=== PATIENT | female | born 1945 | race Caucasian/White ===

== ENCOUNTER → 2018-08-17 | Day surgery (SDC) | payer OTHER ==
--- NOTE | 2018-08-20 14:12 | OP ---
DATE OF OPERATION: 08/17/2018 PREOPERATIVE DIAGNOSIS: Bilateral suspicious masses: Left, 1 to 3 o'clock, 7 cm from the nipple; and right, 1 to 3 o'clock, 2 cm from the nipple. POSTOPERATIVE DIAGNOSIS: Bilateral suspicious masses: Left, 1 to 3 o'clock, 7 cm from the nipple; and right, 1 to 3 o'clock, 2 cm from the nipple. PROCEDURE: Bilateral ultrasound-guided core biopsies and clip placement. ANESTHESIA: Local. ATTENDING SURGEON: Kathy Hernandez MD ESTIMATED BLOOD LOSS: Minimal. COMPLICATIONS: None. PROCEDURE: Patient was made aware of the risks and benefits of the procedure and consented. She was placed in the supine position and the left side was approached first. Under sterile conditions, with 1% lidocaine for local anesthesia, a small fidel was made in the skin. Using a 13-gauge suction biopsy device via lateral approach under ultrasound guidance, multiple cores were obtained and submitted to Pathology. Likewise under ultrasound guidance, a bowtie clip was placed into the biopsy region. Well tolerated by patient. Steri-Strip and sterile bandage was applied. Next, the right side was approached. Under sterile conditions, with 1% lidocaine for local anesthesia, a small fidel was made in the skin. Using a 13-gauge suction biopsy device via medial approach under ultrasound guidance, multiple cores were submitted to Pathology. Likewise under ultrasound guidance, a bowtie clip was placed into the biopsy region. Well tolerated by patient. Steri-Strip and sterile bandage was applied. Will contact her with the results. KATHY HERNANDEZ M.D. [id number]
--- NOTE | 2018-08-20 14:52 | PATH ---
Surgical Pathology Report Patient Name: RAAD MAYERS [facility]. Rec. #: [id number] /Age/Gender: 1945 (Age: 73) / F Account: [id number] Location: [facility] Taken: 08/17/2018 Received: 08/17/2018 Reported: 08/20/2018 Physicians: Kathy Hernandez M.D. Specimen(s) Received A: LEFT BREAST CORE BIOPSY 1-3 N7 B: RIGHT BREAST CORE BIOPSY 1-3 N2 Clinical History Palpable mass Ultrasound findings: Highly suspicious/malignant Final Diagnosis A. 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 Results of ER and WY studies performed on block A at [facility] are as follows: ER (clone [id number] mouse monoclonal antibody by [employer]): 100 % nuclear staining with strong intensity (Positive). WY (clone16 mouse monoclonal antibody by [employer]):1-2 % nuclear staining with moderate to weak intensity (Low positive). B. breast, right, 1-3:00, 2 cm from nipple, core biopsy: Invasive ductal carcinoma, moderately differentiated, measuring at least 8 mm in greatest dimension In this material. Results of ER and WY studies performed on block B at [facility] are as follows: ER (clone [id number] mouse monoclonal antibody by [employer]ica): 100 % nuclear staining with strong intensity (Positive). WY (clone16 mouse monoclonal antibody by [employer]ica): ~40 % nuclear staining with moderate to strong intensity (Positive). Results of Her2 & Ki67 studies will be reported separately in an addendum. Positive and negative controls (internal if applicable) show appropriate results. Formalin fixation and cold ischemic times are within current ASCO/CAP recommendations for ER, WY and Her2 testing. Electronically Signed By Bethanie Cantrell M.D. DOCTOR DEZ Arriola Addendum Reported: 08/21/2018 Addendum Diagnosis Results of Her2 (IHC) & Ki-67 studies performed on block A (left breast) at [place], [place] ([id number]) are as follows: Her2 IHC (EP3 from [employer], formerly known as [id number], using [employer] Polymer Refine detection kit):0 (negative). Ki-67:~5% (low proliferative index). Results of Her2 (IHC) & Ki-67 studies performed on block B (right breast) at [place], [place] ([id number]) are as follows: Her2 IHC (EP3 from [employer], formerly known as [id number], using [employer] Polymer Refine detection kit):0 (negative). Ki-67:~10% (low proliferative index). Positive and negative controls (internal if applicable) show appropriate results. Bethanie Cantrell M.D. Gross Description A. Received in formalin labeled "left breast 1:00-3:00" is a 2.5 x 2.4 x 0.3 cm aggregate of multiple barnhart-yellow, irregular to cylindrical portions of fibroadipose tissue admixed with blood clot and mucinous material. The formalin is filtered and the specimen is entirely submitted in one cassette. B. Received in formalin labeled "right breast 1:00-3:00" is a 1.8 x 1.4 x 0.2 cm aggregate of multiple barnhart-yellow, irregular to cylindrical portions of fibroadipose tissue. The formalin is filtered and the specimen is entirely submitted in one cassette. Time to formalin fixation: < 1 minute Total formalin fixation time: Approximately 6 hours. 08/17/2018 [facility]08/17/2018
== END | disposition home or self-care (01) ==
LOC: FRADUS-SUR 14:24
PROVIDERS: ATTEND Surgery Surgical Oncology
PROC: 0HBV3ZX Excision of Bilateral Breast, Percutaneous Approach, Diagnostic (ICD-10-PCS; principal; 2018-08-17)
DX: C50.412 Malignant neoplasm of upper-outer quadrant of left female breast (principal); C50.211 Malignant neoplasm of upper-inner quadrant of right female breast; D05.12 Intraductal carcinoma in situ of left breast; Z17.0 Estrogen receptor positive status [ER+]; N63.22 Unspecified lump in the left breast, upper inner quadrant; N63.11 Unspecified lump in the right breast, upper outer quadrant
CPT/HCPCS: 19083; 87899; 88305-TC; 88342-TC; A4648

== ENCOUNTER 2018-10-02 06:04 | Inpatient (IN) | payer OTHER ==
[2018-09-20 14:24] VITALS: BMI 25.4
--- NOTE | 2018-09-24 14:17 | HP ---
Admitting History and Physical - Primary Care Physician PCP: Kathy Hernandez - Admission Chief Complaint: bilateral breast cancer History of Present Illness: Patient is a 73 yo female who presented with c/o right breast mass noted on self exam since l which had increased in size and showed skin changes. Patient underwent a mammo and US 06/2018 which was c/w right and left suspicious masses without evidence of adenopathy. Patient underwent core bx of the left 1- 3 o'clock mass which was c/w mucinous ca and DCIS (ER/VT pos) and right 1-3 o' clock invasive ductal ca (ER/VT pos). Patient is now to undergo bilateral mastectomy with snbx possible andx without reconstruction. History Source: Patient Limitations to Obtaining History: No Limitations - Past Medical History Cardiovascular: Yes: HTN ENT: Yes: Other (glaucoma) - Past Surgical History Past Surgical History: Yes: Breast Biopsy (bilateral (1992-benign)), Hysterectomy (JOSE/BSO (1999 sec to ovarian cyst and uterine prolapse)) - Advance Directives Advance Directives: Yes: Health Care Proxy - Smoking History Smoking history: Never smoked Have you smoked in the past 12 months: No - Alcohol/Substance Use Hx Alcohol Use: No Home Medications - Allergies Allergies/Adverse Reactions: Allergies Allergy/AdvReac Type Severity Reaction Status Date / Time aspirin Allergy Severe Rash Verified 09/20/18 14:13 - Home Medications Home Medications: Ambulatory Orders Acetaminophen [Tylenol] 650 mg PO PRN PRN 09/20/18 Amlodipine Besylate [Norvasc -] 5 mg PO DAILY 09/20/18 Lisinopril 10 mg PO DAILY 09/20/18 Family Disease History - Family Disease History Family History: Denies Review of Systems - Review of Systems Musculoskeletal: reports: Back Pain, Joint Pain Physical Examination Constitutional: Yes: Well Nourished Cardiovascular: Yes: WNL Respiratory: Yes: WNL Breast(s): Yes: Other (Right breast deformity with 6 cm mass that is fixed to the skin from 12-3 and right nipple retraction. Left 6 cm mass from 1-3 without fixation. Right oval dark nevus noted on the skin 9N6.) Problem List - Problems (1) Bilateral breast cancer Code(s): C50.911 - MALIGNANT NEOPLASM OF UNSP SITE OF RIGHT FEMALE BREAST; C50.912 - MALIGNANT NEOPLASM OF UNSPECIFIED SITE OF LEFT FEMALE BREAST Qualifiers: Estrogen receptor status: positive Patient sex: female Assessment/Plan Bilateral mastectomy with snbx, poss, andx
[2018-10-02] MEDS ORDERED: ISOSULFAN BLUE 10 MG/ML VIAL SQ ONE (07:20)
[2018-10-02] MEDS ORDERED: PROPOFOL 20 ML ONE (07:56)
[2018-10-02] MEDS ORDERED: MIDAZOLAM HCL 2 MG/2 ML SINGLE DOSE VIAL ONE (07:56)
[2018-10-02] MEDS ORDERED: ceFAZolin SODIUM 1 GM VIAL ONE (07:58)
[2018-10-02] MEDS ORDERED: SODIUM CHLORIDE 0.9% P/F 10 ML VIAL IJ ONE ×2 (07:58→07:59)
[2018-10-02] MEDS ORDERED: ROCURONIUM BROMIDE 50 MG/5 ML SYRINGE ONE (08:43)
[2018-10-02] MEDS ORDERED: DEXAMETHASONE SOD PHOSPHATE 4 MG/1 ML VIAL ONE (08:53)
[2018-10-02] MEDS ORDERED: ONDANSETRON 4 MG/2 ML VIAL ONE (08:53)
[2018-10-02] MEDS ORDERED: KETOROLAC TROMETHAMINE 30 MG/1 ML VIAL ONE (11:29)
[2018-10-02] MEDS ORDERED: GUM MASTIC/STORAX/MSAL/ALCOHOL 1 DRP DROPSBTL MC ONE (11:58)
[2018-10-02] MEDS ORDERED: ONDANSETRON 4 MG/2 ML VIAL IVPUSH PRN ×2 (12:53→12:55)
[2018-10-02] MEDS ORDERED: oxyCODONE HCL 5 MG TABLET PO PRN ×2 (12:53→12:55)
[2018-10-02] MEDS ORDERED: PROMETHAZINE HCL 25 MG/1 ML VIAL IVPUSH PRN (12:53)
[2018-10-02] MEDS ORDERED: ACETAMINOPHEN 325 MG TABLET (FP) PO PRN ×2 (12:53→12:57)
[2018-10-02] MEDS ORDERED: DEXTROSE 5%-0.45% SALINE 1,000 ML IV SCH (13:00)
[2018-10-02] MEDS ORDERED: LACTATED RINGERS SOLUTION 1,000 ML IV SCH (13:00)
[2018-10-02] MEDS: ONDANSETRON 4 MG/2 ML VIAL IVPUSH PRN ×2 (13:44→14:48)
[2018-10-02] MEDS: DEXTROSE 5%-0.45% SALINE 1,000 ML IV SCH (14:15)
[2018-10-02] MEDS: CEFAZOLIN 1 GM/D5W 1 GRAM/50 ML BAG IVPB SCH ×2 (14:48→21:25)
[2018-10-02] MEDS ORDERED: CEFAZOLIN 1 GM/D5W 50 ML IVPB SCH (15:00)
[2018-10-02] MEDS: ACETAMINOPHEN 325 MG TABLET (FP) PO PRN (21:25)
[2018-10-03] MEDS: CEFAZOLIN 1 GM/D5W 1 GRAM/50 ML BAG IVPB SCH ×4 (01:59→21:03)
[2018-10-03 07:30] LABS: HEMATOCRIT 29.4 % (32.4-45.2); HEMOGLOBIN 9.9 GM/dl (10.7-15.3); MCH 31.4 pg (25.7-33.7); MCHC 33.5 g/dl (32.0-36.0); MEAN CELL VOLUME 93.6 fl (80-96); MEAN PLT VOLUME 9.6 fl (7.5-11.1); PLATELET COUNT 189 K/MM3 (134-434); RBC 3.15 M/mm3 (3.60-5.2); RDW 12.3 % (11.6-15.6); WHITE BLOOD COUNT 10.9 K/mm3 (4.0-10.8)
--- NOTE | 2018-10-03 09:00 | PN ---
Progress Note, Physician Chief Complaint: Bilateral breast cancer S/P right modified radical mastectomy and left total mastectomy sentenel node bilaterally no reconstrcution POD #1 History of Present Illness: patient eating up in bed, pain managed with oxycodone prn, will need VNS on discharge - Current Medication List Current Medications: Active Medications Acetaminophen (Tylenol -) 650 mg PO Q4H PRN PRN Reason: FEVER Last Admin: 10/02/18 21:25 Dose: 650 mg Amlodipine Besylate (Norvasc -) 5 mg PO DAILY [facility] Heparin Sodium (Porcine) (Heparin -) 5,000 unit SQ BID [facility] Lactated Ringer's (Lactated Ringers Solution) 1,000 mls @ 125 mls/hr IV ASDIR [facility] Cefazolin Sodium (Ancef 1 Gm Premixed Ivpb -) 1 gram in 50 mls @ 100 mls/hr IVPB Q6H-IV [facility] Stop: 10/09/18 14:59 Last Admin: 10/03/18 08:53 Dose: 100 mls/hr Dextrose/Sodium Chloride (D5-1/2ns -) 1,000 mls @ 100 mls/hr IV ASDIR [facility] Last Admin: 10/02/18 14:15 Dose: 100 mls/hr Lisinopril (Prinivil) 10 mg PO DAILY [facility] Ondansetron HCl (Zofran Injection) 4 mg IVPUSH Q6H PRN PRN Reason: NAUSEA AND/OR VOMITING Last Admin: 10/02/18 14:48 Dose: 4 mg Oxycodone HCl (Roxicodone -) 5 mg PO Q4H PRN PRN Reason: PAIN LEVEL 4 - 6 Promethazine HCl (Phenergan Injection -) 12.5 mg IVPUSH Q6H PRN PRN Reason: NAUSEA-FOR RESCUE AFTER 15 MIN - Objective Vital Signs: Vital Signs Temperature 98.2 F 10/03/18 06:00 Pulse Rate 66 10/03/18 06:00 Respiratory Rate 18 10/03/18 07:40 Blood Pressure 141/53 L 10/03/18 06:00 O2 Sat by Pulse Oximetry (%) 99 10/03/18 07:40 Constitutional: Yes: No Distress Breast(s): Yes: Other (Bilateral incisions intact steristrips in place bloody dressings changed, some echymosis on medial aspect of arms, minimal on chest wall ,no expanding hematoma,JORDAN drains emptied, dressings changed) Labs: CBC, BMP 10/03/18 06:45 Problem List - Problems (1) Bilateral breast cancer Code(s): C50.911 - MALIGNANT NEOPLASM OF UNSP SITE OF RIGHT FEMALE BREAST; C50.912 - MALIGNANT NEOPLASM OF UNSPECIFIED SITE OF LEFT FEMALE BREAST Qualifiers: Breast location: unspecified site of breast Estrogen receptor status: positive Patient sex: female Qualified Code(s): C50.911 - Malignant neoplasm of unspecified site of right female breast; C50.912 - Malignant neoplasm of unspecified site of left female breast; Z17.0 - Estrogen receptor positive status [ER+] Assessment/Plan oxycodone , tylenol prn Iv antibiotics spirometry SCDs while in bed monitor JORDAN output wear binder [employer] 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
[2018-10-03] MEDS: HEPARIN NA (PORCINE) 5,000 UNITS/ML 1ML VIAL SQ SCH ×2 (09:33→21:24)
[2018-10-03] MEDS: ACETAMINOPHEN 325 MG TABLET (FP) PO PRN ×2 (09:33→21:24)
[2018-10-03] MEDS: amLODIPine BESYLATE 5 MG TABLET (FP) PO SCH (09:35)
[2018-10-03] MEDS: LISINOPRIL 10 MG TABLET (FP) PO SCH (09:35)
[2018-10-03] MEDS: DEXTROSE 5%-0.45% SALINE 1,000 ML IV SCH (13:00)
--- NOTE | 2018-10-03 17:43 | PN ---
Progress Note, Physician Chief Complaint: s/p bilateral mastectomy under general anesthesia History of Present Illness: post op day one - Current Medication List Current Medications: Active Medications Acetaminophen (Tylenol -) 650 mg PO Q4H PRN PRN Reason: FEVER Last Admin: 10/03/18 09:33 Dose: 650 mg Amlodipine Besylate (Norvasc -) [address] [facility] Last Admin: 10/03/18 09:35 Dose: 5 mg Heparin Sodium (Porcine) (Heparin -) 5,[address] [facility] Last Admin: 10/03/18 09:33 Dose: 5,000 unit Lactated Ringer's (Lactated Ringers Solution) 1,000 mls @ 125 mls/hr IV ASDIR [facility] Cefazolin Sodium (Ancef 1 Gm Premixed Ivpb -) 1 gram in 50 mls @ 100 mls/hr IVPB Q6H-IV [facility] Stop: 10/09/18 14:59 Last Admin: 10/03/18 08:53 Dose: 100 mls/hr Dextrose/Sodium Chloride (D5-1/2ns -) 1,000 mls @ 100 mls/hr IV ASDIR [facility] Last Admin: 10/02/18 14:15 Dose: 100 mls/hr Lisinopril (Prinivil) [address] [facility] Last Admin: 10/03/18 09:35 Dose: 10 mg Ondansetron HCl (Zofran Injection) 4 mg IVPUSH Q6H PRN PRN Reason: NAUSEA AND/OR VOMITING Last Admin: 10/02/18 14:48 Dose: 4 mg Oxycodone HCl (Roxicodone -) 5 mg PO Q4H PRN PRN Reason: PAIN LEVEL 4 - 6 Last Admin: 10/03/18 09:34 Dose: 5 mg Promethazine HCl (Phenergan Injection -) 12.5 mg IVPUSH Q6H PRN PRN Reason: NAUSEA-FOR RESCUE AFTER 15 MIN - Objective Vital Signs: Vital Signs Temperature 98.7 F 10/03/18 14:07 Pulse Rate 61 10/03/18 14:07 Respiratory Rate 16 10/03/18 14:07 Blood Pressure 117/54 L 10/03/18 14:07 O2 Sat by Pulse Oximetry (%) 97 10/03/18 14:07 Constitutional: Yes: Well Nourished Cardiovascular: Yes: WNL Respiratory: Yes: WNL Gastrointestinal: Yes: WNL Labs: CBC, BMP 10/03/18 06:45 Assessment/Plan No adverse anesthetic complications, dept of anesthesiology will sign off care at this time
[2018-10-04] MEDS: CEFAZOLIN 1 GM/D5W 1 GRAM/50 ML BAG IVPB SCH ×2 (02:27→08:27)
[2018-10-04] MEDS: ACETAMINOPHEN 325 MG TABLET (FP) PO PRN (03:13)
[2018-10-04 08:47] VITALS: BP 137/55; PULSE 76; TEMP 99
--- NOTE | 2018-10-04 09:35 | PN ---
Progress Note, Physician Chief Complaint: Right modified radical mastectomy and left total mastectomy Sentenel node biopsy no reconstruction POD#2 History of Present Illness: patient is eating no nausea or vomiting,OOB to bathroom, drain output has decreased from yesterday, VNS in place - Current Medication List Current Medications: Active Medications Acetaminophen (Tylenol -) 650 mg PO Q4H PRN PRN Reason: FEVER Last Admin: 10/04/18 03:13 Dose: 650 mg Amlodipine Besylate (Norvasc -) 5 mg PO DAILY [facility] Last Admin: 10/03/18 09:35 Dose: 5 mg Heparin Sodium (Porcine) (Heparin -) 5,000 unit SQ BID [facility] Last Admin: 10/03/18 21:24 Dose: 5,000 unit Lactated Ringer's (Lactated Ringers Solution) 1,000 mls @ 125 mls/hr IV ASDIR [facility] Cefazolin Sodium (Ancef 1 Gm Premixed Ivpb -) 1 gram in 50 mls @ 100 mls/hr IVPB Q6H-IV [facility] Stop: 10/09/18 14:59 Last Admin: 10/04/18 08:27 Dose: 100 mls/hr Dextrose/Sodium Chloride (D5-1/2ns -) 1,000 mls @ 100 mls/hr IV ASDIR [facility] Last Admin: 10/03/18 13:00 Dose: 100 mls/hr Lisinopril (Prinivil) 10 mg PO DAILY [facility] Last Admin: 10/03/18 09:35 Dose: 10 mg Ondansetron HCl (Zofran Injection) 4 mg IVPUSH Q6H PRN PRN Reason: NAUSEA AND/OR VOMITING Last Admin: 10/02/18 14:48 Dose: 4 mg Oxycodone HCl (Roxicodone -) 5 mg PO Q4H PRN PRN Reason: PAIN LEVEL 4 - 6 Last Admin: 10/03/18 09:34 Dose: 5 mg Promethazine HCl (Phenergan Injection -) 12.5 mg IVPUSH Q6H PRN PRN Reason: NAUSEA-FOR RESCUE AFTER 15 MIN - Objective Vital Signs: Vital Signs Temperature 99 F 10/04/18 08:46 Pulse Rate 76 10/04/18 08:46 Respiratory Rate 19 10/04/18 08:46 Blood Pressure 137/55 L 10/04/18 08:46 O2 Sat by Pulse Oximetry (%) 96 10/04/18 08:46 Constitutional: Yes: No Distress Breast(s): Yes: Other (Bilateral incisions intact steristrips in place, JORDAN drains functioning right 80cc and left 50 cc in 10 hour period, dressing changed ) Labs: CBC, BMP 10/03/18 06:45 Problem List - Problems (1) Bilateral breast cancer Code(s): C50.911 - MALIGNANT NEOPLASM OF UNSP SITE OF RIGHT FEMALE BREAST; C50.912 - MALIGNANT NEOPLASM OF UNSPECIFIED SITE OF LEFT FEMALE BREAST Qualifiers: Breast location: unspecified site of breast Estrogen receptor status: positive Patient sex: female Qualified Code(s): C50.911 - Malignant neoplasm of unspecified site of right female breast; C50.912 - Malignant neoplasm of unspecified site of left female breast; Z17.0 - Estrogen receptor positive status [ER+] Assessment/Plan Discharge home today with VNS cefadroxil bid and tylenol prn wear bra no shower JORDAN training
[2018-10-04] MEDS: HEPARIN NA (PORCINE) 5,000 UNITS/ML 1ML VIAL SQ SCH (10:30)
[2018-10-04] MEDS: LISINOPRIL 10 MG TABLET (FP) PO SCH (10:30)
[2018-10-04] MEDS: amLODIPine BESYLATE 5 MG TABLET (FP) PO SCH (10:30)
--- NOTE | 2018-10-04 18:46 | OP ---
DATE OF OPERATION: 10/02/2018 PREOPERATIVE DIAGNOSIS: Bilateral breast cancer. POSTOPERATIVE DIAGNOSIS: Bilateral breast cancer. PROCEDURE: Right modified radical mastectomy, left total mastectomy, and bilateral sentinel lymph node biopsies. ANESTHESIA: General intubated. ATTENDING SURGEON: Gina Hernandez MD SMART ENERGY SPECIALIST: CHRISTINE Hardin ESTIMATED BLOOD LOSS: Minimal. COMPLICATIONS: None. DESCRIPTION OF PROCEDURE: Patient was made aware of the risks and benefits of the procedure and consented. She was placed in the supine position on the operating room table and after general anesthesia was induced, the patient was intubated. Then 2.5 mL of 1% isosulfan blue was infiltrated into the right breast. The operative site was then prepped and draped in the usual sterile fashion. Waiting approximately 10 minutes with gentle manual compression, a curvilinear incision was made in the right axilla. Using blunt and sharp dissection, tissues were resected down to the axillary fat where a cluster of blue lymph nodes were identified and surgically excised and submitted for frozen section. They were reported as having metastatic carcinoma. A vertically-oriented elliptical incision was made around the breast mass and nipple using electrocautery. Skin flaps were made superior to the clavicle, medial to the sternum, laterally to the latissimus dorsi, and inferior to the inframammary fold. Using electrocautery, the breast tissue was taken off of the pectoralis muscle, extending laterally to the latissimus dorsi and clavipectoral fascia. This was incised revealing the axillary vein. Using blunt and sharp dissection, the long thoracic nerve was identified and retracted medially and laterally. The thoracodorsal trunk was identified and retracted laterally. Tissues between the 2 were bluntly and sharply dissected free. The specimen was then submitted with a short suture superior, long suture lateral, labeled as right breast with axillary contents. The wound was copiously irrigated with normal saline and hemostasis was maintained by electrocautery. Through 2 inferior stab wounds, drains were then placed and sutured to the skin with 2-0 silk. The skin was then closed with deep 2-0 Vicryl followed by interrupted 3-0 Vicryl followed by running subcuticular 4-0 Monocryl. The left side was then approached using different instruments and changing gowns and gloves. Then 2.5 mL of 1% isosulfan blue was locally infiltrated into the peritumoral tissues, again waiting approximately 10 minutes with gentle manual compression. A curvilinear incision was then made in the left axilla. Using blunt and sharp dissection, tissues were dissected down, which revealed a cluster of blue lymph nodes. These were surgically excised and submitted to pathology. Frozen section reported as no evidence of metastasis. A horizontally oriented elliptical incision was made around the nipple using electrocautery. Skin flaps were made superior to the clavicle, medial to the sternum, lateral to the latissimus dorsi, and inferior to the inframammary fold. Using electrocautery the breast tissue was taken off the pectoralis muscle, extending laterally to the latissimus dorsi. This breast was then submitted with a short suture superior, long suture lateral. The wound was copiously irrigated with normal saline and hemostasis was maintained by electrocautery. A single drain was then placed through the inferior stab wound and sutured to the skin with 2-0 silk. The lateral edge of the incision was then found to be full of redundant tissue and therefore a Y-plasty was then performed suturing the lateral portion of the skin approximately 4 cm medial to the incision, which was then closed with a 2-0 silk. The 2 dog ears were then sharply excised and all of the skin incisions were closed with interrupted 2-0 Vicryl followed by interrupted 3-0 Vicryl followed by running subcuticular 4-0 Monocryl. Steri-Strips, sterile dressings, and compression bra were then applied and the patient, having tolerated the procedure well, was transferred to the recovery room in excellent condition. GINA HERNANDEZ M.D. [id number]
--- NOTE | 2018-10-08 16:22 | PATH ---
Surgical Pathology Report Patient Name: RAAD MAYERS [facility]. Rec. #: [id number] /Age/Gender: 1945 (Age: 73) / F Account: [id number] Location: [facility] MED-SURG Taken: 10/02/2018 Received: 10/02/2018 Reported: 10/08/2018 Physicians: Kathy Hernandez M.D. Specimen(s) Received A: RIGHT AXILLARY SENTINEL NODE (FS) B: LEFT AXILLARY SENTINEL NODE (FS) C: RIGHT BREAST D: LEFT BREAST Clinical History Bilateral breast cancer Intraoperative Consult Diagnosis A. Right axillary sentinel node, frozen section: One lymph node, positive for metastatic carcinoma (1/1). B. Left axillary sentinel node, frozen section: Four negative lymph nodes (0/4). Flako Campos Final Diagnosis A. AXILLARY SENTINEL NODE, RIGHT, BIOPSY (FS): ONE LYMPH NODE WITH METASTATIC CARCINOMA (1/1, MACROMETASTASIS >2MM). TUMOR DEPOSIT MEASURES 1.2 CM IN GREATEST MICROSCOPIC DIMENSION. EXTRANODAL EXTENSION IDENTIFIED. B. AXILLARY SENTINEL NODE, LEFT, BIOPSY (FS): FOUR LYMPH NODES NEGATIVE FOR CARCINOMA (0/4). C. BREAST AND AXILLARY CONTENTS, RIGHT, RADICAL MASTECTOMY AND AXILLARY DISSECTION TWO FOCI OF INVASIVE DUCTAL CARCINOMA, MODERATELY DIFFERENTIATED (TUBULE SCORE: 3/3, NUCLEAR GRADE: 2/3, MITOTIC SCORE: 1/3; TOTAL JAMI SCORE: 6/9), WITH MICROPAPILLARY FEATURES AND ASSOCIATED MICROCALCIFICATIONS. INVASIVE CARCINOMA MEASURES 4 CM AND 1.3 CM IN GREATEST DIMENSION (GROSS MEASUREMENT), PRESENT AT UPPER INNER QUADRANT (UIQ) AND LOWER OUTER QUADRANT (LOQ), RESPECTIVELY. INVASIVE CARCINOMA (UIQ MASS) INVADES DERMIS. FOCAL DUCTAL CARCINOMA IN SITU (DCIS), SOLID TYPE, INTERMEDIATE NUCLEAR GRADE, WITH FOCAL NECROSIS. LYMPHOVASCULAR INVASION IDENTIFIED. SURGICAL MARGINS ARE UNINVOLVED BY INVASIVE CARCINOMA AND DCIS; WIDELY FREE. TWO OF TWELVE LYMPH NODES (2/12) WITH METASTATIC CARCINOMA (MACROMETASTASIS, >2MM). LARGEST TUMOR DEPOSIT MEASURES 0.3 CM IN GREATEST MICROSCOPIC DIMENSION. NO EXTRANODAL EXTENSION IDENTIFIED. SKIN WITH PIGMENTED SEBORRHEIC KERATOSIS AND UNINVOLVED BY CARCINOMA. NIPPLE IS UNINVOLVED BY CARCINOMA. PRIOR BIOPSY SITE CHANGES ARE PRESENT. REMAINDER OF BREAST PARENCHYMA SHOWS STROMAL FIBROSIS, COLUMNAR CELL CHANGES, MICROCYSTS, APOCRINE METAPLASIA, AND ASSOCIATED MICROCALCIFICATIONS. MICROCALCIFICATIONS WITHIN BLOOD VESSEL TELLEZ ARE NOTED. PATHOLOGIC STAGE (pTNM): pT2 (m) pN1a. SEE INVASIVE CARCINOMA CASE SUMMARY BELOW. D. BREAST, LEFT, TOTAL MASTECTOMY: INVASIVE DUCTAL CARCINOMA, MODERATELY DIFFERENTIATED (TUBULE SCORE: 3/3, NUCLEAR GRADE: 2/3, MITOTIC SCORE: 1/3; TOTAL JAMI SCORE: 6/9) WITH MUCINOUS AND MICROPAPILLARY FEATURES AND ASSOCIATED MICROCALCIFICATIONS. INVASIVE CARCINOMA MEASURES 3.7 CM IN GREATEST DIMENSION (GROSS MEASUREMENT), PRESENT AT UPPER OUTER QUADRANT (UOQ). EXTENSIVE DUCTAL CARCINOMA IN SITU (DCIS), SOLID, CRIBRIFORM, AND PAPILLARY TYPES, INTERMEDIATE NUCLEAR GRADE, WITH FOCAL NECROSIS AND ASSOCIATED MICROCALCIFICATIONS. NO LYMPHOVASCULAR INVASION IDENTIFIED. SURGICAL MARGINS ARE UNINVOLVED BY INVASIVE CARCINOMA AND DCIS; WIDELY FREE. TWO LYMPH NODES NEGATIVE FOR CARCINOMA (0/2). SKIN WITH SEBORRHEIC KERATOSIS AND UNINVOLVED BY CARCINOMA. NIPPLE IS UNINVOLVED BY CARCINOMA. PRIOR BIOPSY SITE CHANGES PRESENT. REMAINDER OF BREAST PARENCHYMA SHOWS FIBROADENOMA IN A BACKGROUND OF COLUMNAR CELL CHANGES, STROMAL FIBROSIS, MICROCYSTS, APOCRINE METAPLASIA, USUAL DUCTAL HYPERPLASIA, AND ASSOCIATED MICROCALCIFICATIONS. MICROCALCIFICATIONS WITHIN BLOOD VESSEL TELLEZ NOTED. PATHOLOGIC STAGE (pTNM): pT2 pN0(sn). SEE INVASIVE CARCINOMA CASE SUMMARY BELOW. Comments C. Breast Invasive Carcinoma: Surgical Pathology Case Summary (RIGHT) (Based on AJCC TNM 8 th edition) Procedure _X_ Other (specify): Radical mastectomy Specimen Laterality _X_ Right Tumor Size _X_ Greatest dimension of largest invasive focus >1 mm (millimeters): 40 mm Histologic Type _X_ Invasive carcinoma with micropapillary features Histologic Grade (Jami Histologic Score) Glandular (Acinar)/Tubular Differentiation _X_ Score 3 (<10% of tumor area forming glandular/tubular structures) Nuclear Pleomorphism _X_ Score 2 Mitotic Rate _X_ Score 1 Overall Grade _X_ Grade 2 (scores of 6) Tumor Focality _X_ Multiple foci of invasive carcinoma Number of foci: 2 Sizes of individual foci: 4 cm (UIQ) and 1.3 cm (LOQ) Ductal Carcinoma In Situ (DCIS) _X_ DCIS is present in specimen _X_ Negative for extensive intraductal component (EIC) Skin _X_ Invasive carcinoma directly invades into the dermis or epidermis without skin ulceration Margins Invasive Carcinoma Margins _X__ Uninvolved by invasive carcinoma Distance from closest margin widely free Closest margin: _X__ Cannot be determined DCIS Margins _X__ Uninvolved by DCIS Distance from closest margin (millimeters): widely free Closest margin: _X__ Cannot be determined Regional Lymph Nodes Number of Lymph Nodes Examined: 13 Number of [place] Nodes Examined: 1 _X__ Involved by tumor cells Number of Lymph Nodes with Macrometastases (>2 mm): 3 Number of Lymph Nodes with Micrometastases (>0.2 mm to 2 mm and/or >200 cells): 0 Number of Lymph Nodes with Isolated Tumor Cells (=0.2 mm and =200 cells): 0 Size of Largest Metastatic Deposit (millimeters): 12 mm Extranodal Extension: _X_ Present Treatment Effect _X_ No known presurgical therapy Lymphovascular Invasion _X_ Present Pathologic Stage Classification (pTNM, AJCC 8th Edition) Primary Tumor (Invasive Carcinoma) (pT) _X__ pT2: Tumor >20 mm but =50 mm in greatest dimension Regional Lymph Nodes (pN) Category (pN) _X_ pN1a: Metastases in 1 to 3 axillary lymph nodes, at least 1 metastasis larger than 2.0 mm Biomarker Studies Results of ER and VA studies performed on prior biopsy ([id number]) at [facility] are as follows: ER (clone [id number] mouse monoclonal antibody by [employer]): 100% nuclear staining with strong intensity (Positive). VA (clone16 mouse monoclonal antibody by [employer]):~40% nuclear staining with moderate to strong intensity (Positive). Results of Her2 (IHC) & Ki-67 studies performed on prior biopsy ([id number]) at [place], [place] ([id number]) are as follows: Her2 IHC (EP3 from [employer], formerly known as [id number], using [employer] Polymer Refine detection kit): 0 (Negative). Ki67: ~10% (Low proliferative index). D. Breast Invasive Carcinoma: Surgical Pathology Case Summary (LEFT) (Based on AJCC TNM 8 th edition) Procedure _X_ Total mastectomy (including nipple-sparing and skin-sparing mastectomy) Specimen Laterality _X__ Left Tumor Size _X_ Greatest dimension of largest invasive focus >1 mm (millimeters): 37 mm Histologic Type _X_ Invasive carcinoma with mucinous and micropapillary features Histologic Grade (Jami Histologic Score) Glandular (Acinar)/Tubular Differentiation _X_ Score 3 (<10% of tumor area forming glandular/tubular structures) Nuclear Pleomorphism _X_ Score 2 Mitotic Rate _X_ Score 1 Overall Grade _X_ Grade 2 (scores of 6) Tumor Focality _X_ Single focus of invasive carcinoma: UOQ. Ductal Carcinoma In Situ (DCIS) _X_ DCIS is present in specimen _X_ Positive for extensive intraductal component ( EIC) Margins Invasive Carcinoma Margins _X_ Uninvolved by invasive carcinoma Distance from closest margin (millimeters): widely free Closest margin: __X_ Cannot be determined DCIS Margins _X__ Uninvolved by DCIS Distance from closest margin (millimeters): widely free Closest margin: __X_ Cannot be determined: Regional Lymph Nodes _X__ Uninvolved by tumor cells Number of Lymph Nodes Examined: 6 Number of [place] Nodes Examined: 4 Number of Lymph Nodes with Macrometastases (>2 mm): 0 Number of Lymph Nodes with Micrometastases (>0.2 mm to 2 mm and/or >200 cells): 0 Number of Lymph Nodes with Isolated Tumor Cells (=0.2 mm and =200 cells): 0 Treatment Effect _X__ No known presurgical therapy Lymphovascular Invasion _X_ Not identified Pathologic Stage Classification (pTNM, AJCC 8th Edition) Primary Tumor (Invasive Carcinoma) (pT) _X_ pT2: Tumor >20 mm but =50 mm in greatest dimension Category (pN) _X_ pN0: No regional lymph node metastasis identified or ITCs only Biomarker Studies Results of ER and VA studies performed on prior biopsy ([id number]) at [facility] are as follows: ER (clone [id number] mouse monoclonal antibody by [employer]): 100% nuclear staining with strong intensity (Positive). VA (clone16 mouse monoclonal antibody by [employer]): ~1-2% nuclear staining with weak to moderate intensity (Low Positive). Results of Her2 (IHC) & Ki-67 studies performed on on prior biopsy ([id number]) at [place], [place] ([id number]) are as follows: Her2 IHC (EP3 from [employer], formerly known as [id number], using [employer] Polymer Refine detection kit): 0 (Negative). Ki67: ~5% (Low proliferative index). Comment: Her2 and Ki-67 (Part D) will be repeated in the resection specimen in view of the additional areas of invasive ductal carcinoma identified. Findings will be reported separately. Electronically Signed Kari Hdz M.D. Amendments Amended: 10/08/2018 Previous Signout Date: 10/08/2018 Comment: Update margin status Gross Description A. Received fresh for frozen section evaluation, labeled "right axillary sentinel node" is a 2.2 x 0.8 x 0.4 cm lymph node with attached adipose tissue. The lymph node is bisected and frozen section is performed on the lymph node. The frozen section residue is entirely submitted in one cassette labeled FSA. B. Received fresh for frozen section evaluation, labeled "left axillary sentinel node" are four lymph nodes with attached adipose tissue, ranging from 0.6 - 2.2 cm in greatest dimension. The largest lymph node is bisected and frozen section is performed on the lymph nodes. The frozen section residue is entirely submitted in three cassettes as follows: FSB1 & FSB2: larger bisected lymph node; FSB3: three whole lymph nodes. /10/02/2018 C. Received in formalin, labeled "right breast and axillary contents," is an 809 gram, 18.0 x 17.0 x 5.0 cm. right mastectomy specimen with a short suture marking the superior aspect and a long suture marking the lateral aspect of the specimen, per the surgeon. There is a 9.0 x 7.5 x 1.5 cm area of axillary fat attached to the specimen. The anterior surface displays a 17.0 x 11.0 cm barnhart, elliptical portion of skin with a 1.3 cm in diameter nipple. There is a 2.5 x 1.8 cm firm, bulging subepidermal mass with adjacent umbilication at 2.7 cm superior/medial to the nipple. Additionally, there is a 0.5 x 0.3 cm brown pigmented lesion at 8.5 cm the lateral to the nipple. The deep margin is inked black and the anterior soft tissue margin is inked blue. The specimen is serially sectioned from lateral to medial. Sectioning reveals a 4.0 x 3.5 x 2.8 cm barnhart, indurated mass in the upper inner quadrant (UIQ). The mass is contiguous with the bulging subepidermal mass. The mass is 1.8 cm from the deep margin. Additionally, there is a 1.3 x 1.3 x 0.8 cm barnhart, indurated mass in the lower outer quadrant (LOQ), 7 cm lateral to the first mass. The LOQ mass is 2.8 cm from the deep margin. The remaining breast parenchyma displays multifocal dense white fibrous tissue. Sectioning of the axillary fat reveals multiple lymph nodes. [employer] sections are submitted in 27 cassettes as follows: 1-serially sectioned nipple; 2-retroareolar shave; 3-lateral pigmented skin lesion; 4-6-one full face trisected section of UIQ mass, each with skin; 1-7-gvqvkbeytn full face trisected section of UIQ mass, each with skin; 10-11-lower inner quadrant; 12-13-upper outer quadrant; 14-15-one full face section each of LOQ mass; 16-uninvolved LOQ tissue; 17-deep margin; 18-anterior soft tissue margin; 19-20-one bisected lymph node; 21-22-one bisected lymph node each; 23-27-two whole possible lymph nodes each. Time to formalin fixation: 8 minutes Total formalin fixation time: Approximately 32 hours. D. Received in formalin, labeled "left breast," is a 905 gram, 23.0 x 21.0 x 5.5 cm. left mastectomy specimen with a short suture marking the superior aspect and a long suture marking the lateral aspect of the specimen, per the surgeon. The anterior surface displays an 18.0 x 12.0 cm barnhart, elliptical portion of skin with a 1.3 cm in diameter nipple. There is a 1.7 x 1.0 cm brown pigmented lesion 5.5 cm medial to the nipple. The deep margin is inked black and the anterior soft tissue margin is inked blue. The specimen is serially sectioned from medial to lateral. Sectioning reveals a 3.7 x 3.0 x 1.6 cm barnhart, indurated, focally mucinous and focally hemorrhagic appearing mass in the upper outer quadrant (UOQ). The mass is 3.0 cm from the deep margin. The remaining breast parenchyma displays multifocal dense, white, focally firm fibrous tissue. There are 2 palpable lymph nodes identified at the lateral aspect of the specimen. [employer] sections are submitted in 22 cassettes as follows: 1-serially sectioned nipple; 2-retroareolar shave; 3-medial pigmented skin lesion; 4-5-one full face bisected section of UOQ mass; 1-3-zxcqkxunab full face bisected section of UOQ mass; 3-59-xpilgfdsmg sales representative publications UOQ mass; 11-12-lower outer quadrant; 13-14-upper inner quadrant; 15-16-lower inner quadrant; 17-anterior soft tissue margin; 18-skin; 19-deep margin; 20-21-one bisected lymph node; 22-one whole lymph node. Time to formalin fixation: 11 minutes Total formalin fixation time: Approximately 30 hours. DL/10/03/2018 ebram10/02/2018
== END 2018-10-04 13:25 | disposition home or self-care (01) | DRG 581 ==
LOC: FM/S 06:04
PROVIDERS: ADMIT Surgery Surgical Oncology; ATTEND Surgery Surgical Oncology
PROC: 0HTV0ZZ Resection of Bilateral Breast, Open Approach (ICD-10-PCS; principal; 2018-10-02 09:05)
PROC: 07B60ZX Excision of Left Axillary Lymphatic, Open Approach, Diagnostic (ICD-10-PCS; 2018-10-02 09:05)
PROC: 07B50ZX Excision of Right Axillary Lymphatic, Open Approach, Diagnostic (ICD-10-PCS; 2018-10-02 09:05)
DX: C50.912 Malignant neoplasm of unspecified site of left female breast (principal); C50.911 Malignant neoplasm of unspecified site of right female breast; I10 Essential (primary) hypertension; H40.9 Unspecified glaucoma; Z17.0 Estrogen receptor positive status [ER+]
CPT/HCPCS: 36415; 85027; 88307-TC; 88309-TC; 88331-TC; 88332; 94760; J1644

== ENCOUNTER 2019-01-25 07:09 | Day surgery (SDC) | payer OTHER ==
[2019-01-25] MEDS ORDERED: DENOSUMAB 60 MG/ML DISP.SYRIN SQ ONE (10:00)
[2019-01-25 11:43] LABS: BASO % 0.6 % (0-2.0); EOS % 1.1 % (0-4.5); MCH 30.9 pg (25.7-33.7); MCHC 33.2 g/dl (32.0-36.0); MEAN PLT VOLUME 9.6 fl (7.5-11.1); MONO % 6.1 % (3.8-10.2); NEUT % 68.2 % (42.8-82.8); PLATELET COUNT 228 K/MM3 (134-434); RDW 12.8 % (11.6-15.6); WHITE BLOOD COUNT 6.7 K/mm3 (4.0-10.0)
[2019-01-25 12:08] LABS: ALBUMIN 3.8 g/dl (3.4-5.0); BILIRUBIN,TOTAL 0.5 mg/dL (0.2-1); BLOOD UREA NITROGEN 14.9 mg/dL (7-18); CALCIUM 9.2 mg/dL (8.5-10.1); CREATININE 0.6 mg/dL (0.55-1.3); POTASSIUM 4.7 mmol/L (3.5-5.1); TOT PROT 7.3 g/dl (6.4-8.2)
[2019-01-25] MEDS ORDERED: traMADol HCL 50 MG TABLET PO ONE (12:32)
[2019-01-25 13:28] VITALS: BP 151/63; PULSE 63; TEMP 99
== END 2019-01-25 13:30 | disposition home or self-care (01) ==
LOC: JONCCHEMO 07:09 → J7W 12:54 → JONCCHEMO 13:30
PROVIDERS: ATTEND Internal Medicine Hematology & Oncology
PROC: 3E013GC Introduction of Other Therapeutic Substance into Subcutaneous Tissue, Percutaneous Approach (ICD-10-PCS; principal; 2019-01-25)
DX: Z51.11 Encounter for antineoplastic chemotherapy (principal); C50.911 Malignant neoplasm of unspecified site of right female breast; C50.912 Malignant neoplasm of unspecified site of left female breast; I10 Essential (primary) hypertension; M19.91 Primary osteoarthritis, unspecified site; M41.9 Scoliosis, unspecified
CPT/HCPCS: 36415; 80053; 82306; 85025; 96372; J0897

== ENCOUNTER 2019-08-16 13:43 | Day surgery (SDC) | payer OTHER ==
[2019-08-16 13:57] LABS: BASO % 1.1 % (0-2.0); EOS % 7.2 % (0-4.5); HEMATOCRIT 38.8 % (32.4-45.2); HEMOGLOBIN 13.1 GM/dL (10.7-15.3); LYMPH % 23.9 % (8-40); MCH 31.4 pg (25.7-33.7); MCHC 33.6 g/dl (32.0-36.0); MEAN CELL VOLUME 93.3 fl (80-96); MEAN PLT VOLUME 10.2 fl (7.5-11.1); MONO % 9.4 % (3.8-10.2); NEUT % 58.4 % (42.8-82.8); PLATELET COUNT 210 K/MM3 (134-434); RBC 4.16 M/mm3 (3.60-5.2); RDW 13.6 % (11.6-15.6); WHITE BLOOD COUNT 6.4 K/mm3 (4.0-10.0)
[2019-08-16] MEDS ORDERED: DENOSUMAB 60 MG/ML DISP.SYRIN SQ ONE (14:00)
[2019-08-16 14:23] LABS: BILIRUBIN,TOTAL 0.4 mg/dL (0.2-1); BLOOD UREA NITROGEN 13.6 mg/dL (7-18); CREATININE 0.7 mg/dL (0.55-1.3); POTASSIUM 4.1 mmol/L (3.5-5.1); TOT PROT 7.7 g/dl (6.4-8.2)
[2019-08-16 16:54] VITALS: BP 137/80; PULSE 85; TEMP 99
== END 2019-08-16 14:30 | disposition home or self-care (01) ==
LOC: JONCCHEMO 13:43 → EDSTATUS 13:44 → JONCCHEMO 15:00
PROVIDERS: ATTEND Internal Medicine Hematology & Oncology
PROC: 3E013GC Introduction of Other Therapeutic Substance into Subcutaneous Tissue, Percutaneous Approach (ICD-10-PCS; principal; 2019-08-16)
DX: C50.411 Malignant neoplasm of upper-outer quadrant of right female breast (principal); C50.412 Malignant neoplasm of upper-outer quadrant of left female breast; M19.91 Primary osteoarthritis, unspecified site; M41.9 Scoliosis, unspecified; I10 Essential (primary) hypertension
CPT/HCPCS: 36415; 80053; 82306; 85025; 96372; J0897

== ENCOUNTER 2020-03-06 07:37 | Day surgery (SDC) | payer OTHER ==
[2020-03-06] MEDS ORDERED: DENOSUMAB 60 MG/ML DISP.SYRIN SQ ONE (10:00)
[2020-03-06 10:17] LABS: BASO % 1.1 % (0-2.0); HEMATOCRIT 39.3 % (32.4-45.2); HEMOGLOBIN 13.4 GM/dL (10.7-15.3); MCH 31.6 pg (25.7-33.7); MEAN CELL VOLUME 92.8 fl (80-96); MEAN PLT VOLUME 10.8 fl (7.5-11.1); MONO % 8.7 % (3.8-10.2); NEUT % 59.2 % (42.8-82.8); PLATELET COUNT 184 K/MM3 (134-434); RBC 4.23 M/mm3 (3.60-5.2); RDW 12.7 % (11.6-15.6); WHITE BLOOD COUNT 7.6 K/mm3 (4.0-10.0)
[2020-03-06 10:33] LABS: POTASSIUM 4.4 mmol/L (3.5-5.1)
[2020-03-06 10:36] LABS: CALCIUM 9.1 mg/dL (8.5-10.1)
[2020-03-06 10:37] LABS: BLOOD UREA NITROGEN 17.2 mg/dL (7-18)
[2020-03-06 10:39] LABS: CREATININE 0.6 mg/dL (0.55-1.3)
[2020-03-06 10:41] LABS: BILIRUBIN,TOTAL 0.4 mg/dL (0.2-1); TOT PROT 7.9 g/dl (6.4-8.2)
[2020-03-06 15:10] VITALS: BP 183/74; PULSE 67; TEMP 98.7
== END 2020-03-06 11:15 | disposition home or self-care (01) ==
LOC: JONCCHEMO 07:37
PROVIDERS: ATTEND Internal Medicine Hematology & Oncology
PROC: 3E013GC Introduction of Other Therapeutic Substance into Subcutaneous Tissue, Percutaneous Approach (ICD-10-PCS; principal; 2020-03-06)
DX: C50.919 Malignant neoplasm of unspecified site of unspecified female breast (principal); Z76.89 Persons encountering health services in other specified circumstances
CPT/HCPCS: 36415; 80053; 82306; 85025; 96372; J0897

== ENCOUNTER 2020-09-04 05:12 | Day surgery (SDC) | payer OTHER ==
[2020-09-04] MEDS ORDERED: DENOSUMAB 60 MG/ML DISP.SYRIN SQ ONE (10:00)
[2020-09-04 11:00] LABS: BASO % 0.8 % (0-2.0); EOS % 3.2 % (0-4.5); HEMATOCRIT 36.4 % (32.4-45.2); LYMPH % 28.2 % (8-40); MCH 30.3 pg (25.7-33.7); MCHC 33.1 g/dl (32.0-36.0); MEAN CELL VOLUME 91.7 fl (80-96); MEAN PLT VOLUME 9.2 fl (7.5-11.1); MONO % 11.3 % (3.8-10.2); NEUT % 56.5 % (42.8-82.8); PLATELET COUNT 211 10^3/uL (134-434); RBC 3.96 M/mm3 (3.60-5.2); RDW 13.7 % (11.6-15.6)
[2020-09-04 11:21] LABS: CALCIUM 9.1 mg/dL (8.5-10.1)
[2020-09-04 11:22] LABS: ALBUMIN 3.8 g/dl (3.4-5.0); BLOOD UREA NITROGEN 15.6 mg/dL (7-18)
[2020-09-04 11:25] LABS: CREATININE 0.6 mg/dL (0.55-1.3)
[2020-09-04 11:26] LABS: BILIRUBIN,TOTAL 0.3 mg/dL (0.2-1)
[2020-09-04 11:27] LABS: TOT PROT 7.4 g/dl (6.4-8.2)
[2020-09-04 15:06] VITALS: BP 166/72; PULSE 72; TEMP 98
== END 2020-09-04 10:20 | disposition home or self-care (01) ==
LOC: JONCCHEMO 05:12
PROVIDERS: ATTEND Internal Medicine Hematology & Oncology
PROC: 3E013GC Introduction of Other Therapeutic Substance into Subcutaneous Tissue, Percutaneous Approach (ICD-10-PCS; principal; 2020-09-04)
DX: C50.919 Malignant neoplasm of unspecified site of unspecified female breast (principal); Z76.89 Persons encountering health services in other specified circumstances
CPT/HCPCS: 36415; 80053; 85025; 96372; J0897

== ENCOUNTER 2021-03-05 07:45 | Day surgery (SDC) | payer OTHER ==
[2021-03-05] MEDS ORDERED: DENOSUMAB 60 MG/ML DISP.SYRIN SQ ONE (10:00)
[2021-03-05 11:10] LABS: BASO % 0.8 % (0-2.0); EOS % 2.4 % (0-4.5); HEMATOCRIT 37.3 % (32.4-45.2); HEMOGLOBIN 12.2 GM/dL (10.7-15.3); MCH 30.5 pg (25.7-33.7); MCHC 32.8 g/dl (32.0-36.0); MEAN CELL VOLUME 92.9 fl (80-96); MEAN PLT VOLUME 9.6 fl (7.5-11.1); NEUT % 61.8 % (42.8-82.8); PLATELET COUNT 238 10^3/uL (134-434); RBC 4.01 M/mm3 (3.60-5.2); RDW 13.3 % (11.6-15.6); WHITE BLOOD COUNT 7.4 K/mm3 (4.0-10.0)
[2021-03-05 12:19] LABS: CALCIUM 9.2 mg/dL (8.5-10.1)
[2021-03-05 12:20] LABS: ALBUMIN 3.8 g/dl (3.4-5.0); BLOOD UREA NITROGEN 19.6 mg/dL (7-18)
[2021-03-05 12:23] LABS: CREATININE 0.6 mg/dL (0.55-1.3)
[2021-03-05 12:24] LABS: BILIRUBIN,TOTAL 0.4 mg/dL (0.2-1); TOT PROT 7.2 g/dl (6.4-8.2)
[2021-03-05 12:56] LABS: MAGNESIUM 2.2 mg/dL (1.8-2.4)
[2021-03-05 17:29] VITALS: BP 168/70; PULSE 70; TEMP 98.6
== END 2021-03-05 11:30 | disposition home or self-care (01) ==
LOC: JONCCHEMO 07:45
PROVIDERS: ATTEND Internal Medicine Hematology & Oncology
PROC: 3E013GC Introduction of Other Therapeutic Substance into Subcutaneous Tissue, Percutaneous Approach (ICD-10-PCS; principal; 2021-03-05)
DX: C50.919 Malignant neoplasm of unspecified site of unspecified female breast (principal); Z76.89 Persons encountering health services in other specified circumstances
CPT/HCPCS: 36415; 80053; 83735; 85025; 96372; J0897

== ENCOUNTER 2021-09-10 07:24 | Day surgery (SDC) | payer OTHER ==
[2021-09-10] MEDS ORDERED: DENOSUMAB 60 MG/ML DISP.SYRIN SQ ONE (10:00)
[2021-09-10 11:20] LABS: BASO % 1.2 % (0-2.0); EOS % 2.1 % (0-4.5); HEMATOCRIT 35.8 % (32.4-45.2); HEMOGLOBIN 11.6 GM/dL (10.7-15.3); LYMPH % 27.2 % (8-40); MCH 28.7 pg (25.7-33.7); MCHC 32.4 g/dl (32.0-36.0); MEAN CELL VOLUME 88.4 fl (80-96); MEAN PLT VOLUME 9.2 fl (7.5-11.1); MONO % 9.6 % (3.8-10.2); NEUT % 59.9 % (42.8-82.8); PLATELET COUNT 233 10^3/uL (134-434); RBC 4.05 M/mm3 (3.60-5.2); RDW 14.7 % (11.6-15.6); WHITE BLOOD COUNT 6.7 K/mm3 (4.0-10.0)
[2021-09-10 11:37] LABS: CALCIUM 9.2 mg/dL (8.5-10.1)
[2021-09-10 11:38] LABS: BLOOD UREA NITROGEN 15.4 mg/dL (7-18)
[2021-09-10 11:41] LABS: CREATININE 0.6 mg/dL (0.55-1.3)
[2021-09-10 11:43] LABS: BILIRUBIN,TOTAL 0.4 mg/dL (0.2-1); TOT PROT 7.7 g/dl (6.4-8.2)
[2021-09-10 17:24] VITALS: BP 137/67; PULSE 60; RESP 20
[2021-09-10 17:29] VITALS: TEMP 98.7
== END 2021-09-10 13:30 | disposition home or self-care (01) ==
LOC: JONCCHEMO 07:24
PROVIDERS: ATTEND Internal Medicine Hematology & Oncology
DX: Z51.11 Encounter for antineoplastic chemotherapy (principal); C50.919 Malignant neoplasm of unspecified site of unspecified female breast
CPT/HCPCS: 36415; 80053; 85025; 96372; 96401; J0897

== ENCOUNTER 2022-03-15 09:54 | Day surgery (SDC) | payer OTHER ==
[2022-03-15] MEDS ORDERED: DENOSUMAB 60 MG/ML DISP.SYRIN SQ ONE (10:00)
[2022-03-15 15:30] VITALS: BP 142/56; PULSE 74; RESP 20; TEMP 98.3
== END 2022-03-15 11:33 | disposition home or self-care (01) ==
LOC: JONCCHEMO 09:54
PROVIDERS: ATTEND Internal Medicine Hematology & Oncology
PROC: 3E013GC Introduction of Other Therapeutic Substance into Subcutaneous Tissue, Percutaneous Approach (ICD-10-PCS; principal; 2022-03-15)
DX: C50.011 Malignant neoplasm of nipple and areola, right female breast (principal); C50.012 Malignant neoplasm of nipple and areola, left female breast; E55.9 Vitamin D deficiency, unspecified; Z17.0 Estrogen receptor positive status [ER+]; Z76.89 Persons encountering health services in other specified circumstances
CPT/HCPCS: 96372; J0897

== ENCOUNTER 2022-09-12 12:25 | Day surgery (SDC) | payer OTHER ==
[~2022-09-12 12:25] MED LIST: DENOSUMAB 60 MG/ML DISP.SYRIN SQ ONE
[2022-09-12 13:02] LABS: BASO % 0.5 % (0-2.0); EOS % 4.9 % (0-4.5); HEMATOCRIT 37.9 % (32.4-45.2); HEMOGLOBIN 12.7 GM/dL (10.7-15.3); MCH 30.3 pg (25.7-33.7); MCHC 33.5 g/dl (32.0-36.0); MEAN CELL VOLUME 90.4 fl (80-96); MEAN PLT VOLUME 8.9 fl (7.5-11.1); MONO % 9.4 % (3.8-10.2); NEUT % 62.2 % (42.8-82.8); PLATELET COUNT 205 10^3/uL (134-434); RBC 4.19 M/mm3 (3.60-5.2); RDW 13.6 % (11.6-15.6); WHITE BLOOD COUNT 6.3 K/mm3 (4.0-10.0)
[2022-09-12 13:21] LABS: POTASSIUM 3.8 mmol/L (3.5-5.1)
[2022-09-12 13:22] LABS: MAGNESIUM 2.1 mg/dL (1.8-2.4)
[2022-09-12 13:23] LABS: BLOOD UREA NITROGEN 18.4 mg/dL (7-18); CALCIUM 9.4 mg/dL (8.5-10.1)
[2022-09-12 13:24] LABS: ALBUMIN 3.7 g/dl (3.4-5.0)
[2022-09-12 13:25] LABS: CREATININE 0.6 mg/dL (0.55-1.3)
[2022-09-12 13:26] LABS: BILIRUBIN,DIRECT 0.1 mg/dL (0.0-0.2)
[2022-09-12 13:28] LABS: TOT PROT 7.5 g/dl (6.4-8.2)
[2022-09-12 13:29] LABS: BILIRUBIN,TOTAL 0.3 mg/dL (0.2-1)
[2022-09-12 14:36] VITALS: BP 112/53; PULSE 56; RESP 20; TEMP 98.2
== END 2022-09-12 13:40 | disposition home or self-care (01) ==
LOC: JONCCHEMO 12:25 → J7W 12:26 → JONCCHEMO 13:40
PROVIDERS: ATTEND Internal Medicine Hematology & Oncology
PROC: 3E013GC Introduction of Other Therapeutic Substance into Subcutaneous Tissue, Percutaneous Approach (ICD-10-PCS; principal; 2022-09-12)
DX: C50.511 Malignant neoplasm of lower-outer quadrant of right female breast (principal); C50.512 Malignant neoplasm of lower-outer quadrant of left female breast; E55.9 Vitamin D deficiency, unspecified; D50.9 Iron deficiency anemia, unspecified
CPT/HCPCS: 36415; 80048; 80076; 82306; 82378; 82728; 83540; 83550; 83735; 85025; 86300; 96372; J0897

== ENCOUNTER 2023-03-20 12:54 | Day surgery (SDC) | payer OTHER ==
[2023-03-20 15:01] VITALS: BP 141/51; PULSE 75; RESP 20; TEMP 98.6
== END 2023-03-20 13:05 | disposition home or self-care (01) ==
LOC: J7W 12:54 → JONCCHEMO 12:54
PROVIDERS: ATTEND Internal Medicine Hematology & Oncology
PROC: 3E013GC Introduction of Other Therapeutic Substance into Subcutaneous Tissue, Percutaneous Approach (ICD-10-PCS; principal; 2023-03-20)
DX: C50.511 Malignant neoplasm of lower-outer quadrant of right female breast (principal); C50.512 Malignant neoplasm of lower-outer quadrant of left female breast; M85.89 Other specified disorders of bone density and structure, multiple sites; D50.0 Iron deficiency anemia secondary to blood loss (chronic)
CPT/HCPCS: 96372; J0897

== ENCOUNTER 2023-09-21 10:56 | Day surgery (SDC) | payer OTHER ==
[2023-09-21] MEDS: DENOSUMAB 60 MG/ML DISP.SYRIN SQ ONE (11:03)
[2023-09-21 18:18] VITALS: BP 141/64; PULSE 73; RESP 20; TEMP 98.8
== END 2023-09-21 11:15 | disposition home or self-care (01) ==
LOC: J7W 10:56 → JONCNONCHE 10:56
PROVIDERS: ATTEND Internal Medicine Hematology & Oncology
PROC: 3E013GC Introduction of Other Therapeutic Substance into Subcutaneous Tissue, Percutaneous Approach (ICD-10-PCS; principal; 2023-09-21)
DX: C50.919 Malignant neoplasm of unspecified site of unspecified female breast (principal); M85.89 Other specified disorders of bone density and structure, multiple sites; E55.9 Vitamin D deficiency, unspecified; C79.51 Secondary malignant neoplasm of bone
CPT/HCPCS: 96372; J0897

== ENCOUNTER 2024-09-30 09:38 | Day surgery (SDC) | payer OTHER ==
[2024-09-30] MEDS: DENOSUMAB 60 MG/ML DISP.SYRIN SQ ONE (09:52)
[2024-09-30 16:06] VITALS: BP 152/59; PULSE 88; RESP 20; TEMP 98.4
== END 2024-09-30 10:00 | disposition home or self-care (01) ==
LOC: JONCCHEMO 09:38 → J7W 09:45 → JONCCHEMO 10:00
PROVIDERS: ATTEND Internal Medicine Hematology & Oncology
PROC: 3E013GC Introduction of Other Therapeutic Substance into Subcutaneous Tissue, Percutaneous Approach (ICD-10-PCS; principal; 2024-09-30)
DX: C50.812 Malignant neoplasm of overlapping sites of left female breast (principal); C50.811 Malignant neoplasm of overlapping sites of right female breast; Z17.0 Estrogen receptor positive status [ER+]
CPT/HCPCS: 96372; J0897